=== PATIENT | male | born 1950 | race Caucasian/White ===

== ENCOUNTER → 2016-11-21 | Outpatient (CLI) | payer OTHER ==
--- NOTE | ~2016-11-21 | MR165 ---
[facility] A Service of [facility] RADIOLOGY TEXT RESULTS PATIENT: DAVID MOULTON LOCATION: [facility] : 50 UNIT #: [id number] AGE: [address]: Chico Whaley MD SEX: M ORDER DR: [id number] [address] [address] [id number] O MR#: [id number] Acc #: [id number] NAME: DAVID MOULTON : 1950 SEX: M STUDY DATE/TIME: 11/21/2016 10:42 UNIT: [facility] ROOM: STUDY DESCRIPTION: MR Shoulder Wo Contrast Rt Attending Physician: Justin Whaley M.D. Referring Physician: Justin Whaley M.D. Ordering Physician: Physician Non-Staff Primary Care Physician: Dora Wadsworth [facility] REPORT This report is preliminary unless electronic signature is present. EXAM Right shoulder MRI without contrast 11/21/2016 HISTORY 66-year-old male with right shoulder pain and limited range of motion since injury 02/03/2015. History of prior right shoulder surgery for rotator cuff repair 1999 and 2007. COMPARISON Right shoulder MRI 04/03/2009 and 06/04/2015. Right shoulder x-rays 12/10/2015. TECHNIQUE Routine unenhanced multiplanar, multisequence high field MR imaging of the right shoulder was performed. FINDINGS There are again noted postsurgical changes from prior rotator cuff repair and presumed subacromial decompression. The anterior supraspinatus tendon repair remains intact. There has been interval progression to a full-thickness tear involving the posterior half of the insertional supraspinatus tendon (previously high-grade partial-thickness tear). There is retraction over the middle third of the humeral head, but no significant supraspinatus atrophy compared to prior study. There is vats-fl-amedsjet infraspinatus tendinopathy with probable high-grade partial or full-thickness tearing of the anterior margin of the infraspinatus tendon. There is mild infraspinatus atrophy which is unchanged from the prior study. Teres minor tendon intact. Chronic marked teres minor atrophy is unchanged. There is moderate subscapularis tendinopathy again noted which is unchanged from prior exam. No evidence of tear. The long biceps tendon appears intact. No evidence of a labral tear. Glenohumeral articular cartilage is intact. [facility]. [facility] A Service of [facility] RADIOLOGY TEXT RESULTS PATIENT: DAVID MOULTON LOCATION: [facility] : 50 UNIT #: [id number] AGE: [address]: Chico Whaley MD SEX: M ORDER DR: No glenohumeral effusion. Nynx-or-qxjfqfkr acromioclavicular joint arthrosis. No subacromial spur. Bone marrow signal is otherwise within expected limits. Remainder of the visualized musculature is unremarkable. IMPRESSION 1. Postsurgical changes from prior rotator cuff repair and subacromial decompression. 2. Anterior supraspinatus tendon repair remains intact. However, there has been progression to a full-thickness tear involving the posterior half of the supraspinatus tendon which is retracted over the middle third of the humeral head. No significant supraspinatus atrophy. 3. Zpfm-ko-uzrbgmsm infraspinatus tendinopathy with probable high-grade partial-thickness or full-thickness tearing of the anterior margin of the insertional tendon. There is chronic-appearing mild infraspinatus atrophy, which is unchanged from the prior study. 4. No significant labral pathology. 5. Chronic-appearing marked teres minor muscle atrophy, unchanged from prior studies. 6. Uwif-jl-fpraniio acromioclavicular joint arthrosis. Dictated by... Anthony Andujar M.D. THIS IS AN ELECTRONICALLY VERIFIED REPORT Anthony Andujar M.D. at 11/23/2016 4:52 PM Wilder TD: 11/22/2016 18:24 JOB #: [id number] [facility] REPORT Page 1 of 1
== END | disposition home or self-care (01) ==
LOC: SMRI 09:46
DX: M25.511 Pain in right shoulder (principal); M75.121 Complete rotator cuff tear or rupture of right shoulder, not specified as traumatic; M62.511 Muscle wasting and atrophy, not elsewhere classified, right shoulder; M19.011 Primary osteoarthritis, right shoulder; Z98.890 Other specified postprocedural states
CPT/HCPCS: 73221